=== PATIENT | male | born 1950 | race Caucasian/White ===

== ENCOUNTER 2022-08-10 05:28 | Day surgery (SDC) | payer OTHER ==
[2022-08-03 15:16] LABS: BASOPHILS % (AUTO) 0.5 % (0-1); EOSINOPHILS # (AUTO) 0.1 X10'3 (0-0.9); EOSINOPHILS % (AUTO) 1.4 % (0-6); LYMPHOCYTES % (AUTO) 14.5 % (21-51); MEAN CORPUSCULAR HEMOGLOBIN 31.1 PG (27.0-31.0); MEAN CORPUSCULAR HGB CONC 33.8 g/dL (33.0-36.5); MEAN CORPUSCULAR VOLUME 92.1 FL (78-98); MEAN PLATELET VOLUME 8.3 FL (7.4-10.4); MONOCYTES # (AUTO) 0.6 X10'3 (0-0.9); MONOCYTES % (AUTO) 7.9 % (2-12); NEUTROPHILS # (AUTO) 5.4 X10'3 (1.8-7.7); NEUTROPHILS % (AUTO) 75.7 % (42-75); PRE OP HEMATOCRIT 36.8 % (42.0-52.0); PRE OP HEMOGLOBIN 12.4 g/dL (14.0-17.9); PRE OP PLATELET COUNT 154 X10'3 (140-440); RED CELL DISTRIBUTION WIDTH 15.1 % (11.5-14.5)
[2022-08-03 15:25] LABS: PRE OP INR 1.1 INR; PRE OP PROTIME 11.9 SECONDS (9.0-12.0)
[2022-08-03 15:29] LABS: ALBUMIN 4.1 G/DL (3.4-5.0); ALBUMIN/GLOBULIN RATIO 1.5 (1.1-1.5); ALKALINE PHOSPHATASE 77 IU/L (46-116); BLOOD UREA NITROGEN 27 MG/DL (7-18); BUN/CREATININE RATIO 21.1 (10.0-20.0); CALCIUM 9.5 MG/DL (8.5-10.1); CHLORIDE 104 MMOL/L (99-107); CREATININE 1.28 MG/DL (0.60-1.10); PRE OP ALT 27 U/L (30-65); PRE OP ANION GAP 6 (8-16); PRE OP AST 23 U/L (10-37); PRE OP BILIRUB, TOTAL 0.9 MG/DL (0.0-1.0); PRE OP GLUCOSE 98 MG/DL (70-104); PRE OP POTASSIUM 3.6 MMOL/L (3.4-5.1); PRE OP SODIUM 140 MMOL/L (135-145); TOTAL CARBON DIOXIDE 30.2 MMOL/L (24-32); TOTAL PROTEIN 6.9 G/DL (6.4-8.2); eGFR 55 ML/MIN
[~2022-08-10] VITALS: Ht 195.6 cm; Wt 78.0 kg
[2022-08-10] VITALS (12 sets, daily range): BP systolic 133–149; BP diastolic 74–87
[~2022-08-10 05:28] MED LIST: AMLO5TAB PO; ASPI81TA52 PO; ATOR20TA PO; CALCIUM CITRATE; FISH OIL; MVI; NAPR220T67 PO; NICO-687 TOP; PANT-47 PO
[2022-08-10] MEDS ORDERED: normal saline 1000ml 500 ML IV SCH (05:30)
[2022-08-10] MEDS ORDERED: famotidine 20mg tablet PO ONE (05:30)
[2022-08-10] MEDS ORDERED: BUPIVAcaine 0.5% inj/PF 30 ML ONE (06:49)
[2022-08-10] MEDS ORDERED: LIDOcaine 1% W/epiNEPHrine 1:100,000 20ml vial ONE (06:49)
[2022-08-10] MEDS ORDERED: bacitracin 15gm ointment TP ONE (06:49)
[2022-08-10] MEDS ORDERED: vancomycin 1,500 MG in NS 300ml IV soln IV ONE (06:53)
[2022-08-10] MEDS ORDERED: ondansetron/PF 4mg/2ml inj IV PRN (07:10)
[2022-08-10] MEDS ORDERED: acetaminophen 1,000mg/100ml IV 100 ML IV PRN (07:10)
[2022-08-10] MEDS ORDERED: meperidine/PF 25mg/ml syringe IV PRN ×3 (07:10)
[2022-08-10] MEDS ORDERED: proCHLORperazine 10 MG/2 ml inj IV PRN (07:10)
[2022-08-10] MEDS ORDERED: morphine 4 MG/ML inj SYRINge IV PRN (07:10)
[2022-08-10] MEDS ORDERED: labetalol 20mg/4ml (5mg/ml) syringe IV PRN (07:10)
[2022-08-10] MEDS ORDERED: ringers solution, lacted 1,000 ML IV SCH (07:10)
[2022-08-10] MEDS ORDERED: hydrALAZINE 20mg/ml inj. IV PRN (07:10)
[2022-08-10] MEDS ORDERED: morphine 2 MG/ML inj. syringe IV PRN (07:10)
[2022-08-10] MEDS ORDERED: sevoflurane 250ml liquid IH ONE (07:18)
[2022-08-10] MEDS ORDERED: dexamethasone sod phosphate 10mg/ml inj ONE (07:18)
[2022-08-10] MEDS ORDERED: ondansetron/PF 4mg/2ml inj ONE (07:18)
[2022-08-10] MEDS ORDERED: midazolam 1 mg/ML 2ml injection ONE (07:24)
[2022-08-10] MEDS ORDERED: fentaNYL /PF 50mcg/ml 5ml ampule ONE (07:26)
[2022-08-10] MEDS ORDERED: propofol inj 20 ML IV ONE (07:48)
[2022-08-10] MEDS ORDERED: LIDOcaine 2% (20mg/ml) 5ml vial ONE (07:48)
[2022-08-10] MEDS ORDERED: ePHEDrine 50MG/ML INJ. ONE (07:48)
--- NOTE | 2022-08-10 08:25 | NUR ---
Received from OR via , accompanied by Anesthesiologist DR COOK and report given by Anesthesiolgist. PATIENT CAME OUT WITH ORAL AIRWAY ON 2 LITERS WITH MASK. VSS. IV IN THE RIGHT LOWER ABD. DRESSING- SUTURES,STERI STRIPS, 4X4, AND TAPE CDI. Addendum: 08/10/22 at 0845 by Demetria Washington RN Amended: Links added.
--- NOTE | 2022-08-10 10:05 | NUR ---
PATIENT MEETS DISCHARGE CRITERIA. VSS. URINATED 400. IVDC'D WITH NO ISSUES. WENT OVER INSTRUCTIONS WITH PATIENT AND . WHEELED PATIENT TO HIS 'S CAR Addendum: 08/10/22 at 1019 by Demetria Washington RN Amended: Links added.
== END 2022-08-10 10:05 | disposition home or self-care (01) ==
LOC: PAS 05:28
PROVIDERS: ATTEND Surgery
DX: K40.90 Unilateral inguinal hernia, without obstruction or gangrene, not specified as recurrent (principal); I10 Essential (primary) hypertension; K21.9 Gastro-esophageal reflux disease without esophagitis; F17.210 Nicotine dependence, cigarettes, uncomplicated; E78.5 Hyperlipidemia, unspecified; M19.90 Unspecified osteoarthritis, unspecified site; Z98.890 Other specified postprocedural states; Z95.2 Presence of prosthetic heart valve; Z85.828 Personal history of other malignant neoplasm of skin; Z87.442 Personal history of urinary calculi; Z88.0 Allergy status to penicillin; Z79.899 Other long term (current) drug therapy; Z79.01 Long term (current) use of anticoagulants; Z79.82 Long term (current) use of aspirin
CPT/HCPCS: 36415; 49505; 80053; 82948; 85025; 85610; 85730; C1781; J1100; J2250; J2405; J2704; J3010; J3370; J3490; J7030; J7120; S0020; Z7506; Z7508; Z7512; A4215; A4618; A6449; A7000